=== PATIENT | male | born 1955 | race Caucasian/White ===

== ENCOUNTER 2018-12-27 09:03 | Outpatient (CLI) | payer BC ==
[~2018-12-27] VITALS: Ht 175.3 cm; Wt 79.5 kg
[~2018-12-27 09:03] MED LIST: ENOX40SY7 SQ; FENO145T38 PO; LEVO200T PO; OMEG1CAP PO; OMEP40CA37 PO; ROSU20TA2 PO; WARF5TAB PO
[2018-12-27] MEDS ORDERED: SINCALIDE IV ONE (09:55)
[2018-12-27] MEDS ORDERED: NORMAL SALINE IV ONE (09:55)
== END 2018-12-27 23:59 | disposition home or self-care (01) ==
LOC: RAD 09:03
PROVIDERS: ATTEND Internal Medicine
DX: K82.8 Other specified diseases of gallbladder (principal)
CPT/HCPCS: 78227; A9537; J2805

== ENCOUNTER 2019-07-13 06:37 | Day surgery (SDC) | payer BC ==
[~2019-07-13] VITALS: Ht 175.3 cm; Wt 71.8 kg
[~2019-07-13 06:37] MED LIST changes: +OMEP40CA13 PO; -OMEP40CA37 PO
[2019-07-13] MEDS ORDERED: normal saline 1000ml 1,000 ML IV PRN (07:00)
[2019-07-13] MEDS ORDERED: albumin 25% 100mL bottle x 1 IV PRN (07:00)
[2019-07-13 07:15] VITALS: BP 133/74
[2019-07-13 08:30] VITALS: BP 145/85
[2019-07-13 08:45] VITALS: BP 156/93
[2019-07-13 08:50] VITALS: BP 150/83
[2019-07-13 08:58] VITALS: BP 150/83
[2019-07-13] MEDS ORDERED: VIT1TABL83 PO (09:28)
[2019-07-13] MEDS ORDERED: RIVA20TA PO (09:28)
[2019-07-13] MEDS ORDERED: CAPE500T PO (09:28)
[2019-07-13] MEDS ORDERED: FURO40TA4 PO (09:28)
[2019-07-13] MEDS ORDERED: DIPH-522 PO (09:28)
[2019-07-13] MEDS ORDERED: CHOL100046 PO (09:28)
[2019-07-13] MEDS ORDERED: POTA99TA21 PO (09:28)
[2019-07-13] MEDS ORDERED: LIPA1CAP18 PO (09:28)
[2019-07-13] MEDS ORDERED: FLUD0.1T PO (09:28)
[2019-07-13] MEDS ORDERED: LOPE-190 PO (09:28)
[2019-07-13] MEDS ORDERED: OMEP20TA5 PO (09:28)
[2019-07-13] MEDS ORDERED: MIDO5TAB4 PO (09:28)
[2019-07-13 10:45] LABS: ALBUMIN,BODY FLUID 1.3 G/DL; LDH,BODY FLUID 71 U/L; TOTAL PROTEIN,BODY FLUID 2.6 G/DL
[2019-07-13 10:49] LABS: GLUCOSE,BODY FLUID 212 MG/DL
[2019-07-13 10:53] LABS: BFAPPEAR TURBID; BFCOLOR STRAW; BFVOLUME 50 ML
[2019-07-13 10:54] LABS: BF RBC COUNT 80 /CU MM; BF WBC COUNT 181 /CU MM (0-1000)
[2019-07-13 11:07] LABS: LYMPHOCYTES,BODY FLUID 28 %; MONOCYTES,BODY FLUID 48 %; NEUTROPHILS,BODY FLUID 24 %
[2019-07-13 11:08] LABS: BF MESOTHELIAL CELLS FEW
== END 2019-07-13 09:05 | disposition home or self-care (01) ==
LOC: SSTAY O 06:37
PROVIDERS: ATTEND Radiology Diagnostic Radiology
DX: R18.8 Other ascites (principal); Z88.1 Allergy status to other antibiotic agents
CPT/HCPCS: 49083; 82042; 82945; 83615; 84157; 87070; 89051; C1729; J7030

== ENCOUNTER 2019-08-11 06:21 | Day surgery (SDC) | payer BC ==
[2019-08-11] VITALS (7 sets, daily range): BP systolic 131–155; BP diastolic 78–93
[~2019-08-11] VITALS: Ht 175.3 cm; Wt 75.7 kg
[~2019-08-11 06:21] MED LIST changes: +CAPE500T PO; +CHOL100046 PO; +DIPH-522 PO; -ENOX40SY7 SQ; +FLUD0.1T PO; +FURO40TA4 PO; +LIPA1CAP18 PO; +LOPE-190 PO; +MIDO5TAB4 PO; -OMEG1CAP PO; +OMEP20TA5 PO; -OMEP40CA13 PO; +POTA99TA21 PO; +RIVA20TA PO; +VIT1TABL83 PO; -WARF5TAB PO
[2019-08-11] MEDS ORDERED: albumin 25% 100mL bottle x 1 IV PRN (06:50)
[2019-08-11] MEDS ORDERED: normal saline 1000ml 1,000 ML IV PRN (06:50)
== END 2019-08-11 09:46 | disposition home or self-care (01) ==
LOC: SSTAY O 06:21
PROVIDERS: ATTEND Radiology Vascular & Interventional Radiology
DX: R18.8 Other ascites (principal); E03.9 Hypothyroidism, unspecified; E78.5 Hyperlipidemia, unspecified; Z86.718 Personal history of other venous thrombosis and embolism; Z85.07 Personal history of malignant neoplasm of pancreas; Z98.890 Other specified postprocedural states; Z90.81 Acquired absence of spleen; Z72.89 Other problems related to lifestyle; Z88.1 Allergy status to other antibiotic agents; Z79.899 Other long term (current) drug therapy; Z82.49 Family history of ischemic heart disease and other diseases of the circulatory system
CPT/HCPCS: 49083; 82040; 82042; C1729; J2001; P9047

== ENCOUNTER 2019-11-04 19:26 | Emergency (ER) | payer BC ==
[~2019-11-04] VITALS: Ht 175.3 cm; Wt 66.8 kg
[~2019-11-04 19:26] MED LIST changes: -CAPE500T PO; -DIPH-522 PO; -FLUD0.1T PO
[2019-11-04 20:24] LABS: BASOPHILS % (AUTO) 0.3 % (0-1); EOSINOPHILS % (AUTO) 0.4 % (0-6); HEMATOCRIT 22.3 % (42.0-52.0); HEMOGLOBIN 7.3 g/dl (14.0-17.9); LYMPHOCYTES # (AUTO) 1.1 X10'3 (1.1-4.8); LYMPHOCYTES % (AUTO) 11.7 % (21-51); MEAN CORPUSCULAR HEMOGLOBIN 26.2 PG (27.0-31.0); MEAN CORPUSCULAR HGB CONC 32.6 g/dL (33.0-36.5); MEAN CORPUSCULAR VOLUME 80.3 FL (78-98); MONOCYTES # (AUTO) 1.4 X10'3 (0-0.9); MONOCYTES % (AUTO) 15.4 % (2-12); NEUTROPHILS # (AUTO) 6.8 X10'3 (1.8-7.7); NEUTROPHILS % (AUTO) 72.2 % (42-75); PLATELET COUNT 230 X10'3 (140-440); RED BLOOD COUNT 2.77 X10'6 (4.70-6.10); RED CELL DISTRIBUTION WIDTH 19.1 % (11.5-14.5); WHITE BLOOD COUNT 9.4 X10'3 (4.5-11.0)
[2019-11-04 20:50] LABS: ALANINE AMINOTRANSFERASE 59 U/L (12-78); ALBUMIN 3.3 G/DL (3.4-5.0); ALBUMIN/GLOBULIN RATIO 0.9 (1.1-1.5); ALKALINE PHOSPHATASE 65 IU/L (46-116); ANION GAP 9 (8-16); ASPARTATE AMINO TRANSFERASE 78 U/L (10-37); BILIRUBIN,TOTAL 0.4 MG/DL (0.1-1.0); BLOOD UREA NITROGEN 26 MG/DL (7-18); BUN/CREATININE RATIO 16.5 (5.4-32.0); CALCIUM 8.8 MG/DL (8.5-10.1); CHLORIDE 104 MMOL/L (99-107); CREATININE 1.58 MG/DL (0.60-1.10); GLUCOSE 111 MG/DL (70-104); MAGNESIUM 1.9 MG/DL (1.5-2.4); POTASSIUM 3.9 MMOL/L (3.5-5.1); SODIUM 140 MMOL/L (135-145); TOTAL CARBON DIOXIDE 26.8 MMOL/L (24-32); TOTAL PROTEIN 7.1 G/DL (6.4-8.2); eGFR 44 ML/MIN
[2019-11-04 21:13] LABS: ANISOCYTOSIS 2+; HYPOCHROMASIA 1+; PLATELET ESTIMATE NORMAL; POLYCHROMASIA FEW
[2019-11-04 21:14] LABS: ELLIPTOCYTES FEW; TARGET CELLS FEW
[2019-11-04 21:22] LABS: CLARITY,URINE CLEAR (Clear); COLOR,URINE YELLOW (Yellow); GLUCOSE, URINE NEGATIVE (Neg); KETONES,URINE NEGATIVE (Neg); LEUKOCYTE ESTERASE ,URINE NEGATIVE (Neg); NITRITES, URINE NEGATIVE (Neg); OCCULT BLOOD,URINE NEGATIVE (Neg); PROTEIN,URINE NEGATIVE (Neg); UA COLLECTION TYPE CLN CATCH MIDSTREAM; UROBILINOGEN,URINE 0.2 E.U/dL (0.2-1.0)
[2019-11-04] MEDS ORDERED: iohexol 300mg/ml 100ml inj. ONE (21:55)
--- NOTE | 2019-11-04 22:08 | NUR ---
ASSISTING WITH PT CARE, PT GOING TO CT
--- NOTE | 2019-11-04 22:30 | NUR ---
covid 19 rapid swab colleted. pt with stable vs. reports pain is 4 out of 10 to RLQ.
[2019-11-04] MEDS ORDERED: LIPA1TAB4 PO (23:43)
[2019-11-04] MEDS ORDERED: FENO145T25 PO (23:43)
[2019-11-04] MEDS ORDERED: FLO0.1T PO (23:43)
[2019-11-04] MEDS ORDERED: DIPH-522 PO (23:43)
[2019-11-04] MEDS ORDERED: ROSU20TA2 PO (23:46)
[2019-11-05 00:20] LABS: ETHANOL < 0.010 GM/DL (0.0-0.010)
[2019-11-05] MEDS ORDERED: normal saline 1000ml 1,000 ML IV ONE (01:45)
[2019-11-05 02:52] LABS: BASOPHILS # (AUTO) 0.1 X10'3 (0-0.2); BASOPHILS % (AUTO) 0.7 % (0-1); EOSINOPHILS % (AUTO) 0.5 % (0-6); LYMPHOCYTES % (AUTO) 10.5 % (21-51); MEAN CORPUSCULAR HGB CONC 32.7 g/dL (33.0-36.5); MEAN CORPUSCULAR VOLUME 79.5 FL (78-98); MEAN PLATELET VOLUME 9.2 FL (7.4-10.4); MONOCYTES # (AUTO) 1.6 X10'3 (0-0.9); NEUTROPHILS # (AUTO) 6.6 X10'3 (1.8-7.7); NEUTROPHILS % (AUTO) 71.3 % (42-75); PLATELET COUNT 216 X10'3 (140-440); RED BLOOD COUNT 2.53 X10'6 (4.70-6.10); RED CELL DISTRIBUTION WIDTH 18.6 % (11.5-14.5); WHITE BLOOD COUNT 9.3 X10'3 (4.5-11.0)
[2019-11-05 02:56] LABS: HEMATOCRIT 20.1 % (42.0-52.0); HEMOGLOBIN 6.6 g/dl (14.0-17.9)
[2019-11-05] MEDS ORDERED: HUMAN PROTHROMBIN COMPLX(PCC) 500 UNIT KIT IV ONE (03:20)
[2019-11-05] MEDS ORDERED: acetaminophen 325mg tablet PO PRN ×2 (03:30)
[2019-11-05] MEDS ORDERED: morphine 2 MG/ML inj. syringe IV PRN (03:30)
[2019-11-05] MEDS ORDERED: ondansetron/PF 4mg/2ml inj IV PRN (03:30)
[2019-11-05] MEDS ORDERED: morphine 4 MG/ML inj SYRINge IV PRN (03:30)
[2019-11-05] MEDS ORDERED: magnesium hydroxide 30ml (MOM) UD suspension PO PRN (03:30)
[2019-11-05 04:17] LABS: PARTIAL THROMBOPLASTIN TIME 38 SECONDS (22-32)
[2019-11-05 05:01] VITALS: BP 124/59
[2019-11-05 05:13] VITALS: BP 120/61
--- NOTE | 2019-11-05 05:13 | NUR ---
PT RESTING, HE IS LAYING ON LEFT SIDE. THE FIRST UNIT OF PRBCS IS INFUSING.
--- NOTE | 2019-11-05 05:35 | NUR ---
irradiated unit transferred from [facility] and transfused. Report given to Rinku at [facility].
--- NOTE | 2019-11-05 05:48 | NUR ---
PT IS BEING TRANSFERRED TO [facility] AND [facility] AND DECK REMOVER HAS CALL TO GET FLIGHT CREW SO THE ORDERS FOR ADMISSION WERE CANCELLED.
[2019-11-05 06:11] VITALS: BP 146/74
[2019-11-05 06:59] VITALS: BP 138/66
[2019-11-05 07:00] VITALS: BP 138/66
[2019-11-05] MEDS ORDERED: LIPASE/PROTEASE/AMYLASE 4,200 unit CAPSULE.DR PO SCH (07:00)
[2019-11-05] MEDS ORDERED: levoTHYROXINE 100mcg tablet PO SCH (07:00)
[2019-11-05] MEDS ORDERED: pantoprazole 40mg Tablet.DR PO SCH (07:30)
[2019-11-05] MEDS ORDERED: fludrocortisone acetate 0.1mg tablet PO SCH (08:00)
[2019-11-05] MEDS ORDERED: fenofibrate 145mg tablet PO SCH (08:00)
[2019-11-05] MEDS ORDERED: midodrine 5mg tablet PO SCH (08:00)
[2019-11-05] MEDS ORDERED: atorvastatin 20mg tablet PO SCH (08:00)
== END 2019-11-05 07:25 | disposition short-term general hospital (02) ==
LOC: ER 19:27 → UNDOADMIN 11-05 03:28 → ED HOLD 11-05 03:28 → ER 11-05 07:25 → UNDODISIN 11-05 07:30
DX: K66.1 Hemoperitoneum (principal); Z20.828 Contact with and (suspected) exposure to other viral communicable diseases; R16.0 Hepatomegaly, not elsewhere classified; R05 Cough; R50.9 Fever, unspecified; R10.31 Right lower quadrant pain; N28.9 Disorder of kidney and ureter, unspecified; Z85.07 Personal history of malignant neoplasm of pancreas; Z90.411 Acquired partial absence of pancreas; Z86.718 Personal history of other venous thrombosis and embolism; Z90.89 Acquired absence of other organs; Z88.1 Allergy status to other antibiotic agents; Z88.0 Allergy status to penicillin; Z79.899 Other long term (current) drug therapy
CPT/HCPCS: 36415; 36430; 71045; 74176; 74177; 80053; 80320; 81003; 83605; 83735; 84145; 85025; 85610; 85730; 86644; 86885; 86900; 86901; 86920; 86945; 87040; 87635; 93005; 96374; 99291; C9132; J7030; P9016; Q9967; 96361; 99284; 99285; G0378

== ENCOUNTER 2020-01-16 18:42 | Inpatient (IN) | payer BC ==
[~2020-01-16] VITALS: Ht 175.3 cm; Wt 63.6 kg
[~2020-01-16 18:42] MED LIST changes: -CHOL100046 PO; +DIPH-522 PO; +FENO145T25 PO; -FENO145T38 PO; +FLO0.1T PO; -FURO40TA4 PO; -LIPA1CAP18 PO; +LIPA1TAB4 PO; -POTA99TA21 PO; -VIT1TABL83 PO
[2020-01-16 19:43] LABS: HEMOGLOBIN 7.8 g/dl (14.0-17.9)
[2020-01-16 19:45] LABS: MEAN CORPUSCULAR HEMOGLOBIN 25.5 PG (27.0-31.0); MEAN CORPUSCULAR HGB CONC 32.5 g/dL (33.0-36.5); MEAN CORPUSCULAR VOLUME 78.4 FL (78-98); MEAN PLATELET VOLUME 9.3 FL (7.4-10.4); PLATELET COUNT 329 X10'3 (140-440); RED BLOOD COUNT 3.06 X10'6 (4.70-6.10); RED CELL DISTRIBUTION WIDTH 20.2 % (11.5-14.5)
[2020-01-16 20:00] LABS: ALANINE AMINOTRANSFERASE 50 U/L (12-78); ALBUMIN 3.3 G/DL (3.4-5.0); ALBUMIN/GLOBULIN RATIO 0.9 (1.1-1.5); ALKALINE PHOSPHATASE 88 IU/L (46-116); ANION GAP 10 (8-16); ASPARTATE AMINO TRANSFERASE 58 U/L (10-37); BILIRUBIN,TOTAL 0.5 MG/DL (0.1-1.0); BLOOD UREA NITROGEN 32 MG/DL (7-18); BUN/CREATININE RATIO 25.4 (5.4-32.0); CALCIUM 8.1 MG/DL (8.5-10.1); CHLORIDE 102 MMOL/L (99-107); CREATININE 1.26 MG/DL (0.60-1.10); GLUCOSE 87 MG/DL (70-104); POTASSIUM 3.2 MMOL/L (3.5-5.1); SODIUM 138 MMOL/L (135-145); TOTAL CARBON DIOXIDE 26.4 MMOL/L (24-32); TOTAL PROTEIN 6.9 G/DL (6.4-8.2); eGFR 58 ML/MIN
[2020-01-16 20:26] LABS: WHITE BLOOD COUNT 0.4 X10'3 (4.5-11.0)
[2020-01-16 20:34] LABS: ACANTHOCYTES 1+; ANISOCYTOSIS 2+; ELLIPTOCYTES 1+; HYPOCHROMASIA 2+; MICROCYTOSIS 1+; PLATELET ESTIMATE NORMAL; POIKILOCYTOSIS 2+; SCHISTOCYTES 1+
[2020-01-16] MEDS ORDERED: cefepime 1GM in D5W 50mL 50 ML IV ONE (21:10)
[2020-01-16] MEDS ORDERED: VANCOmycin 1250MG/NS 250ml Bag 250 ML IV ONE (21:20)
[2020-01-16] MEDS ORDERED: CEFEPIME IV ONE (21:23)
[2020-01-16] MEDS ORDERED: NORMAL SALINE IV ONE (21:23)
--- NOTE | 2020-01-16 22:40 | NUR ---
Patient moved to room 10, declined gown placement.
[2020-01-16] MEDS ORDERED: normal saline 1000ml 1,000 ML IV ONE (23:15)
[2020-01-16] MEDS ORDERED: acetaminophen 325mg tablet PO ONE (23:15)
[2020-01-16 23:16] LABS: CLARITY,URINE CLEAR (Clear); COLOR,URINE YELLOW (Yellow); GLUCOSE, URINE NEGATIVE (Neg); KETONES,URINE NEGATIVE (Neg); LEUKOCYTE ESTERASE ,URINE NEGATIVE (Neg); NITRITES, URINE NEGATIVE (Neg); OCCULT BLOOD,URINE NEGATIVE (Neg); PH,URINE 5.5 (4.8-8.0); PROTEIN,URINE NEGATIVE (Neg); UROBILINOGEN,URINE 0.2 E.U/dL (0.2-1.0)
[2020-01-16 23:18] LABS: UA COLLECTION TYPE CLN CATCH MIDSTREAM
--- NOTE | 2020-01-16 23:20 | NUR ---
temp 102.6 oral HR 124, . . clarence aware. given tylenon 650 mg. pt awiting hospitalist. placed in neutropenic precautions and hepa filter running . given water. maxipime infused, vancomycin now infusing and 1 liter ns.
[2020-01-17] VITALS (7 sets, daily range): BP systolic 95–142; BP diastolic 48–72
[2020-01-17] MEDS ORDERED: magnesium hydroxide 30ml (MOM) UD suspension PO PRN (00:35)
[2020-01-17] MEDS ORDERED: morphine 2 MG/ML inj. syringe IV PRN ×2 (00:35)
[2020-01-17] MEDS ORDERED: acetaminophen 325mg tablet PO PRN ×2 (00:35)
[2020-01-17] MEDS ORDERED: ondansetron/PF 4mg/2ml inj IV PRN (00:35)
[2020-01-17] MEDS ORDERED: HYDROcodone/acetaminophen 10/325mg tab PO PRN (00:35)
[2020-01-17] MEDS ORDERED: mag hydrox/Alum hydrox/simeth 30ml oral suspension PO PRN (00:35)
[2020-01-17] MEDS ORDERED: HYDROcodone/acetaminophen 5mg/325mg tablet PO PRN (00:35)
--- NOTE | 2020-01-17 01:05 | NUR ---
Patient arrived via wheelchair. Patient ambulated to the bed independently with ease. Will admit and assess.
[2020-01-17] MEDS: normal saline 1000ml 1,000 ML IV SCH ×3 (01:22→20:31)
--- NOTE | 2020-01-17 06:25 | NUR ---
Reported off to Gabby BURDEN. Patient is resting with relaxed and unlabored respirations on room air. In no apparent distress. Call light and items of frequent use within reach.
--- NOTE | 2020-01-17 06:30 | NUR ---
Patient in room ORTHO 4007. I have received report from Maria T Fry RN and had the opportunity to ask questions and assume patient care.
[2020-01-17] MEDS ORDERED: TBO-filgrastim 300 MCG/0.5 ML inj. SQ SCH (08:00)
[2020-01-17] MEDS: cefepime inj. 1 GM in normal saline 100ml IV soln 100 ML IV SCH ×2 (08:57→16:28)
--- NOTE | 2020-01-17 09:08 | NUR ---
promotional table spacer PAGER ID: [phone] MESSAGE: [phone] Ovidio Franck Patient is unable to eat until he gets his digestive enzyme meds due to whipple. Could you please reconcile patients home meds so he can have breakfast. Thank you #[phone] Gabby
--- NOTE | 2020-01-17 09:20 | NUR ---
PAGER ID: [phone] MESSAGE: [phone] Franck Walters K+ 3.2 Could I get a potassium replacement order please. Thank you #[phone] Gabby
[2020-01-17] MEDS ORDERED: filgrastim 300mcg inj SQ ONE (09:40)
[2020-01-17] MEDS ORDERED: rivaroxaban 20mg tablet PO SCH (10:20)
[2020-01-17 10:27] LABS: HEMOGLOBIN 7.1 g/dl (14.0-17.9)
[2020-01-17 10:29] LABS: MEAN CORPUSCULAR HEMOGLOBIN 25.5 PG (27.0-31.0); MEAN CORPUSCULAR HGB CONC 32.5 g/dL (33.0-36.5); MEAN CORPUSCULAR VOLUME 78.3 FL (78-98); MEAN PLATELET VOLUME 8.8 FL (7.4-10.4); PLATELET COUNT 283 X10'3 (140-440); RED CELL DISTRIBUTION WIDTH 20.5 % (11.5-14.5)
[2020-01-17 10:35] LABS: ALBUMIN 2.5 G/DL (3.4-5.0); ANION GAP 7 (8-16); BLOOD UREA NITROGEN 24 MG/DL (7-18); BUN/CREATININE RATIO 20.3 (5.4-32.0); CALCIUM 7.5 MG/DL (8.5-10.1); CHLORIDE 104 MMOL/L (99-107); CREATININE 1.18 MG/DL (0.60-1.10); GLUCOSE 143 MG/DL (70-104); POTASSIUM 3.3 MMOL/L (3.5-5.1); SODIUM 137 MMOL/L (135-145); eGFR 62 ML/MIN
[2020-01-17] MEDS: atorvastatin 20mg tablet PO SCH (11:02)
--- NOTE | 2020-01-17 11:19 | NUR ---
Dr Hamilton notified of critical labs while rounding on patient at 1100 WBC 1.0 HCT 22.0 HGB 7.1 Patient does not want to have a transfer
[2020-01-17 11:37] LABS: ANISOCYTOSIS 3+; MICROCYTOSIS 1+; NUCLEATED RED BLOOD CELLS 5 /100WBC (0-0); PLATELET ESTIMATE NORMAL; TOTAL CELLS COUNTED 100
[2020-01-17 11:38] LABS: ACANTHOCYTES 1+; ELLIPTOCYTES 1+; HYPOCHROMASIA 2+; SCHISTOCYTES 1+
[2020-01-17] MEDS: fenofibrate 145mg tablet PO SCH (11:57)
[2020-01-17] MEDS: LIPASE/PROTEASE/AMYLASE 4,200 unit CAPSULE.DR PO SCH ×2 (11:57→19:36)
[2020-01-17] MEDS: levoTHYROXINE 100mcg tablet PO SCH (11:58)
[2020-01-17] MEDS: pantoprazole 40mg Tablet.DR PO SCH (11:58)
[2020-01-17] MEDS ORDERED: PROTEASE PO SCH (12:00)
[2020-01-17] MEDS ORDERED: LIPASE PO SCH (12:00)
[2020-01-17] MEDS ORDERED: AMYLASE PO SCH (12:00)
--- NOTE | 2020-01-17 13:52 | NUR ---
PAGER ID: [phone] MESSAGE: [phone] Franck Walters patient said he is now ok with having a blood transfusion if its needed. Gabby #[phone]
[2020-01-17] MEDS: diphenoxylate/atropine tablet (Lomotil) PO SCH ×3 (16:29→21:00)
[2020-01-17] MEDS ORDERED: magnesium 4gm in 100ml NS 100 ML IV PRN (17:00)
[2020-01-17] MEDS ORDERED: magnesium Cl slow-release 64mg tablet PO PRN (17:00)
[2020-01-17] MEDS ORDERED: potassium CL 10mEq/100ml bag 100 ML IV PRN (17:00)
[2020-01-17] MEDS ORDERED: potassium Cl 20 mEq SR tablet PO PRN ×2 (17:00)
--- NOTE | 2020-01-17 18:20 | NUR ---
Problems reprioritized. Patient report given, questions answered & plan of care reviewed with gloria.
[2020-01-17] MEDS: fludrocortisone acetate 0.1mg tablet PO SCH (19:37)
[2020-01-17] MEDS: K and/or MAG REPLACEMENT MC SCH (20:00)
[2020-01-17] MEDS ORDERED: midodrine 5mg tablet PO SCH (20:00)
--- NOTE | 2020-01-17 20:41 | NUR ---
SPOKE TO DR. MAYS AT 1845 REGARDING ADMINISTRATION OF BLOOD. SHE SAID TO TRANSFUSE IF HGB FALLS BELOW 7.0. LAST HGB 7.1. PRIMARY NURSE, KIMBERLY, SPOKE TO PATIENT WHO TOLD HER DR. MAYS INFORMED HIM SHE INTENDED ON TRANSFUSING HIM TONIGHT. HE CALLED HIS ONCOLOGIST DR. MCCORMICK WHO, PER THE PATIENT, SAID HE NEEDS THE BLOOD TRANSFUSION. PATIENT REQUESTED WE CALL THE [employer] POST OFFICE CLERK HOSPITALIST TO GET AN ORDER TO TRANSFUSE TONIGHT. 2030 DR. OROZCO CALLED AND ORDERED ONE UNIT OF BLOOD TO BE TRANSFUSED TONIGHT. PER THE BLOOD BANK THE BLOOD IS COMING FROM [facility] [facility] AND WILL BE HERE AROUND MIDNIGHT.
--- NOTE | 2020-01-17 22:00 | NUR ---
Pt said he was told that he needed a transfusion by day shift doctor. I explained that the hospitalist rec transfuse if Hgb below 7.0. The pt stated that when he was told this earlier in the day he called his oncologist @ [facility] (Dr. Matos). Per pt Dr. Matos rec transfuse pt if HgB falls below 7.9. Called night hospitalist per pts. request & informed.
[2020-01-18 00:45] VITALS: BP 94/57
[2020-01-18 01:45] VITALS: BP 119/66
[2020-01-18 02:15] VITALS: BP 108/64
[2020-01-18] MEDS: cefepime inj. 1 GM in normal saline 100ml IV soln 100 ML IV SCH ×2 (02:23→08:06)
[2020-01-18 06:00] VITALS: BP 122/68
[2020-01-18 06:26] LABS: EOSINOPHILS # (AUTO) 0.1 X10'3 (0-0.9); MONOCYTES # (AUTO) 0.9 X10'3 (0-0.9); NEUTROPHILS # (AUTO) 1.4 X10'3 (1.8-7.7); WHITE BLOOD COUNT 3.1 X10'3 (4.5-11.0)
[2020-01-18 06:30] LABS: EOSINOPHILS % (AUTO) 4.6 % (0-6); HEMATOCRIT 23.4 % (42.0-52.0); HEMOGLOBIN 7.9 g/dl (14.0-17.9); LYMPHOCYTES # (AUTO) 0.7 X10'3 (1.1-4.8); LYMPHOCYTES % (AUTO) 21.3 % (21-51); MEAN CORPUSCULAR HEMOGLOBIN 26.5 PG (27.0-31.0); MEAN CORPUSCULAR HGB CONC 33.7 g/dL (33.0-36.5); MEAN CORPUSCULAR VOLUME 78.7 FL (78-98); MONOCYTES % (AUTO) 28.8 % (2-12); NEUTROPHILS % (AUTO) 44.3 % (42-75); PLATELET COUNT 267 X10'3 (140-440); RED BLOOD COUNT 2.97 X10'6 (4.70-6.10); RED CELL DISTRIBUTION WIDTH 20.9 % (11.5-14.5)
--- NOTE | 2020-01-18 06:30 | NUR ---
Problems reprioritized. Patient report given, questions answered & plan of care reviewed with Dru BURDEN.
[2020-01-18] MEDS: normal saline 1000ml 1,000 ML IV SCH (06:31)
--- NOTE | 2020-01-18 06:39 | NUR ---
Patient in room ORTHO 4007. I have received report from Ira and had the opportunity to ask questions and assume patient care.
[2020-01-18 06:41] LABS: ALBUMIN 2.4 G/DL (3.4-5.0); ANION GAP 6 (8-16); BLOOD UREA NITROGEN 15 MG/DL (7-18); BUN/CREATININE RATIO 13.5 (5.4-32.0); CALCIUM 7.8 MG/DL (8.5-10.1); CHLORIDE 106 MMOL/L (99-107); CREATININE 1.11 MG/DL (0.60-1.10); GLUCOSE 79 MG/DL (70-104); MAGNESIUM 1.6 MG/DL (1.5-2.4); SODIUM 139 MMOL/L (135-145); TOTAL CARBON DIOXIDE 26.8 MMOL/L (24-32); eGFR 67 ML/MIN
[2020-01-18] MEDS: LIPASE/PROTEASE/AMYLASE 4,200 unit CAPSULE.DR PO SCH (07:00)
[2020-01-18] MEDS ORDERED: diphenoxylate/atropine tablet (Lomotil) PO PRN (07:09)
[2020-01-18] MEDS ORDERED: midodrine 5mg tablet PO SCH (07:16)
[2020-01-18] MEDS: K and/or MAG REPLACEMENT MC SCH (07:30)
[2020-01-18 07:34] LABS: ACANTHOCYTES 1+; ANISOCYTOSIS 3+; ELLIPTOCYTES 1+; HYPOCHROMASIA 2+; MICROCYTOSIS 1+; NUCLEATED RED BLOOD CELLS 3 /100WBC (0-0); PLATELET ESTIMATE NORMAL; SCHISTOCYTES 1+; TOTAL CELLS COUNTED 100
[2020-01-18 07:35] LABS: TARGET CELLS 1+
[2020-01-18] MEDS ORDERED: TBO-filgrastim 300 MCG/0.5 ML inj. SQ SCH (08:00)
--- NOTE | 2020-01-18 08:00 | NUR ---
Dru 5199 Re: Franck Nolan Potassium 3.0. I will start replacement protocol.
[2020-01-18] MEDS: atorvastatin 20mg tablet PO SCH (08:06)
[2020-01-18] MEDS: levoTHYROXINE 100mcg tablet PO SCH (08:07)
[2020-01-18] MEDS: fenofibrate 145mg tablet PO SCH (08:07)
[2020-01-18] MEDS: fludrocortisone acetate 0.1mg tablet PO SCH (08:07)
[2020-01-18] MEDS: pantoprazole 40mg Tablet.DR PO SCH (08:07)
[2020-01-18] MEDS ORDERED: filgrastim 300mcg inj SQ ONE (08:26)
--- NOTE | 2020-01-18 09:14 | NUR ---
Dru 5199 Re: Franck Nolan Pt wants to leave AMA this morning.
--- NOTE | 2020-01-18 09:46 | NUR ---
Dru 0129 Re: Ovidio Juárez Pt wanting to leave AMA, can we DC him?
[2020-01-18 10:00] VITALS: BP 111/62
--- NOTE | 2020-01-18 11:02 | NUR ---
notified MD that patient wanted to leave AMA. NSG educated patient on AMA. Patient left home with family member.
[2020-01-19] MEDS ORDERED: TBO-filgrastim 300 MCG/0.5 ML inj. SQ SCH (08:00)
== END 2020-01-18 11:10 | disposition left against medical advice (07) | DRG 809 ==
LOC: ER 18:42 → UNDOADMIN 01-17 00:31 → ED HOLD 01-17 00:31 → ORTHO 4S 01-17 01:05
PROVIDERS: ADMIT Internal Medicine; ATTEND Internal Medicine
PROC: 30233N1 Transfusion of Nonautologous Red Blood Cells into Peripheral Vein, Percutaneous Approach (ICD-10-PCS; principal; 2020-01-17)
DX: D70.8 Other neutropenia (principal); C25.9 Malignant neoplasm of pancreas, unspecified; N17.9 Acute kidney failure, unspecified; D63.8 Anemia in other chronic diseases classified elsewhere; E03.9 Hypothyroidism, unspecified; E78.5 Hyperlipidemia, unspecified; K52.9 Noninfective gastroenteritis and colitis, unspecified; R50.81 Fever presenting with conditions classified elsewhere; Z90.49 Acquired absence of other specified parts of digestive tract; Z95.1 Presence of aortocoronary bypass graft; Z53.29 Procedure and treatment not carried out because of patient's decision for other reasons
CPT/HCPCS: 36415; 36430; 71045; 80048; 80053; 81003; 83605; 83735; 84145; 85025; 86885; 86900; 86901; 86922; 87040; 87081; 93005; 99285; G0378; J0692; J1442; J3370; J7030; P9016